=== PATIENT | male | born 1980 ===

== ENCOUNTER 2021-05-12 23:50 | Emergency (ER) | payer OTHER ==
--- NOTE | 2021-05-13 00:17 | EDM.PDOC ---
ED HPI GENERAL MEDICAL PROBLEM - General Chief Complaint: Upper Extremity Injury/Pain Stated Complaint: RIGHT PINKY INJURY Time Seen by Provider: 05/13/21 00:15 Source of Information: Reports: Patient. Denies: Old Records (No [facility] records available) History Limitations: Reports: No Limitations - History of Present Illness INITIAL COMMENTS - FREE TEXT/NARRATIVE: Patient was brought to the emergency room via transport vehicle from [facility] for evaluation of a Workmen's Compensation injury, which occurred at 6 AM on 05/12/2021. He had a minor crush injury between a press with Steri-Strips and 2 hole finger splint applied by the [facility] nurse at that time. Last ibuprofen dose of 400 mg at about 2 PM this afternoon with no other treatment to this point. He has not injured this finger in the past. The patient is right- handed. No recent history of abdominal pain, heartburn, nausea, diarrhea, melena, gross hematochezia, or any food intolerance, including fatty foods, etc.. The patient also denies any recent fever, cough, wheezing, dyspnea, etc.. He denies any fall, paresthesias, neurological deficits, or other complaints or injuries. Onset: Sudden Onset Date: 05/12/21 Onset Time: 06:00 Duration: Constant Location: Reports: Upper Extremity, Right. Denies: Head, Face, Neck, Chest, Abdomen, Back, Pelvis Quality: Reports: Same as Previous Episode, Throbbing Severity: Moderate Improves with: Reports: None Worsens with: Reports: None Context: Reports: Trauma (As above) Associated Symptoms: Denies: Confusion, Chest Pain, Cough, Diaphoresis, Fever/Chills, Headaches, Loss of Appetite, Malaise, Nausea/Vomiting, Shortness of Breath, Syncope, Weakness Treatments PLATE CLEANER: Reports: NSAIDS, Other (see below) (As above) Right Finger-Little Pain Score (Numeric/FACES): 7 - Related Data Allergies Allergy/AdvReac Type Severity Reaction Status Date / Time No Known Allergies Allergy Verified 05/12/21 23:54 Home Meds: Home Meds . [No Known Home Meds] 05/12/21 [History] Past Medical History - Past Health History Medical/Surgical History: Denies Medical/Surgical History Cardiovascular History: Denies: Hypertension Musculoskeletal History: Denies: Fracture Endocrine/Metabolic History: Reports: Obesity/BMI 30+ - Infectious Disease History Infectious Disease History: Denies: Novel Coronavirus (J&J immunization March 2021 by patient history) - Past Surgical History GI Surgical History: Reports: None. Denies: Appendectomy Male Surgical History: Reports: None. Denies: Circumcision Social & Family History - Tobacco Use Tobacco Use Status *Q: Never Tobacco User Second Hand Smoke Exposure: No - Caffeine Use Caffeine Use: Reports: None - Recreational Drug Use Recreational Drug Use: No - Living Situation & Occupation Occupation: Employed ([employer]) Review of Systems - Review of Systems Review Of Systems: Comprehensive ROS is negative, except as noted in HPI. ED EXAM, GENERAL - Physical Exam Exam: See Below Exam Limited By: No Limitations General Appearance: Alert, WD/WN, No Apparent Distress Head: Atraumatic, Normocephalic Neck: Normal Inspection, Supple, Non-Tender, Full Range of Motion. No: Lymphadenopathy (L), Lymphadenopathy (R), Thyromegaly Respiratory/Chest: No Respiratory Distress, Lungs Clear, Normal Breath Sounds, No Accessory Muscle Use, Chest Non-Tender. No: Pleural Rub, Retractions Cardiovascular: Normal Peripheral Pulses, Regular Rate, Rhythm, No Edema, No Gallop, No JVD, No Murmur, No Rub. No: Gallop/S3, Gallop/S4, Friction Rub Peripheral Pulses: 2+: Radial (L), Radial (R) GI/Abdominal: Normal Bowel Sounds, Soft, Non-Tender, No Organomegaly, No Distention, No Abnormal Bruit, No Mass, Pelvis Stable, Other (Obese). No: Guarding (Male) Exam: Deferred Rectal (Males) Exam: Deferred Back Exam: Normal Inspection, Full Range of Motion. No: CVA Tenderness (L), CVA Tenderness (R), Muscle Spasm Extremities: No Pedal Edema, Normal Capillary Refill, Limited Range of Motion (Right fifth finger secondary to an injury), Other (Moderate tenderness over laceration site with 1.5 cm superficial laceration over the radial surface of the middle phalanx of digit #5 of the right hand with no crepitation, deformity, nail involvement, etc.). No: Increased Warmth, Redness Neurological: Alert, Oriented, CN II-XII Intact, Normal Cognition, Normal Gait, Normal Reflexes, No Motor/Sensory Deficits Psychiatric: Normal Affect, Normal Mood Skin Exam: Normal Color, No Rash, Wound/Incision (As above). No: Diaphoretic, Ecchymosis, Lymphangitis Lymphatic: No Adenopathy ED TRAUMA EXTREMITY PROCEDURES - Splinting Right 5th Digit Pre-Procedure NV Status: Normal Post-Procedure NV Status: Normal Splint Material: Aluminum-Foam (3-hole padded aluminum) Splint Design: Extensor (Flexor), Other (Secured with 2 inch Howard wrap) Applied & Form Fitted By: Nurse Provider Post-Splint Application NV Check: NV Status Normal, Good Position Complications: No Course - Vital Signs Last Recorded V/S: Last Vital Signs Temp 36.2 C 05/12/21 23:56 Pulse 66 05/12/21 23:56 Resp 14 05/12/21 23:56 BP 137/81 05/12/21 23:56 Pulse Ox 100 05/12/21 23:56 Vital Signs - 24 hr 05/12/21 23:56 Temperature [ 36.2 C Temporal] Pulse, 66 Peripheral [ Left Pulse Oximetry] Respiratory 14 Rate Blood Pressure 137/81 [Left Upper Arm ] O2 Sat by Pulse 100 Oximetry - Orders/Labs/Meds Orders: Active Orders 24 hr Category Date Time Status Fingers Fifth Digit Rt F9 [CR] Stat Exams 05/13/21 00:18 Ordered Durable Medical Equipment for Discharge [DME for Oth 05/13/21 00:21 Ordered Discharge] [COMM] Routine Obtain Past Medical Record [OM.PC] Routine Oth 05/13/21 00:17 Active Labs: None Meds: Medications Discontinued Medications Generic Name Dose Route Start Last Admin Trade Name Kevin PRN Reason Stop Dose Admin Neomycin/Polymyxin/Bacitracin 1 each 05/13/21 00:30 Bacitracin/Neomycin/Polymyxin B Oint 0.9 Gm U/D Packet TOP 05/13/21 00:31 ONETIME ONE - Radiology Interpretation Free Text/Narrative:: X-rays of digit #5 of the right hand shows no evidence of fracture, dislocation, foreign body, etc. Departure - Departure Time of Disposition: 00:50 Disposition: Home, Self-Care 01 Condition: Good Clinical Impression: Laceration - Discharge Information *PRESCRIPTION DRUG MONITORING PROGRAM REVIEWED*: Not Applicable *COPY OF PRESCRIPTION DRUG MONITORING REPORT IN PATIENT JOHN: Not Applicable Instructions: Laceration Care, Adult, [id number] Forms: ED Department Discharge Additional Instructions: 1. Followup with your regular provider in 10-14 days as directed. Bring these discharge instructions with you to that visit. 2. Tylenol 650 mg by mouth every 4 hours and/or OTC ibuprofen 2-3 tabs by mouth every 6 hours with food as directed./needed. You may stagger these medications for 48-72 hours only, which essentially means that you are receiving a pain medication about every 2 hours. 3. Antibacterial soap wash/soak with subsequent antibacterial dressing such as Neosporin, etc. as directed 2 times per day until the wound or laceration site completely heals. Keep the area clean and dry with activity restrictions as discussed. Never use hydrogen peroxide for wound care. 4. You may use the finger splint as needed 5. Work excuse- See Form 6. Immediately after this visit verify that your cellular telephone's voicemail has been activated and is empty. Also verify that your home telephone's answering machine is operating properly and has space to receive messages. Note that it is sometimes necessary for us to be able to contact you at a later date to discuss your medical care. 7. Please remember that we are ALWAYS here for you and want to answer any questions you may have. Feel free to call the hospital any time and we call you back SKY. Sepsis Event Note (ED) - Evaluation Sepsis Screening Result: No Definite Risk - Focused Exam Vital Signs: Vital Signs Temp Pulse Resp BP Pulse Ox 05/12/21 23:56 36.2 C 66 14 137/81 100 - Problem List & Annotations (1) Laceration SNOMED Code(s): 198993356 Code(s): [id number] - Status: Acute Priority: High Onset Date: 05/12/21 Annotation/Comment:: Secondary to age of the injury laceration repair was not conducted. Previous Steri-Strips were removed by the nurse with laceration site cleansed, Neosporin dressing placed, and laceration site secured with 2 inch Howard wrap and a 3-hole finger splint. Finger splint may be used on an as-needed basis since no fracture is present. Emergency room nurse did confirm thru [facility] patient's last tetanus on 01/21/2019 with previous TDAP on 04/13/17. Wound care, activity restrictions, etc. were discussed. Workmen's Compensation and [employer] work excuse forms were completed. - Problem List Review Problem List Initiated/Reviewed/Updated: Yes - My Orders Last 24 Hours: My Active Orders 05/13/21 00:17 Obtain Past Medical Record [OM.PC] Routine 05/13/21 00:18 Fingers Fifth Digit Rt F9 [CR] Stat 05/13/21 00:21 Durable Medical Equipment for Discharge [DME for Discharge] [COMM] Routine - Assessment/Plan Last 24 Hours: My Active Orders 05/13/21 00:17 Obtain Past Medical Record [OM.PC] Routine 05/13/21 00:18 Fingers Fifth Digit Rt F9 [CR] Stat 05/13/21 00:21 Durable Medical Equipment for Discharge [DME for Discharge] [COMM] Routine Assessment:: As above Plan: As above. Extensive precautions were given to the patient, who is in agreement with the treatment plan. See Patient Instructions for further treatment and plan.
[2021-05-13] MEDS ORDERED: Bacitracin/Neomycin/Polymyxin B Oint 0.9 GM U/D Packet TOP ONE (00:30)
== END 2021-05-13 00:50 | disposition home or self-care (01) ==
LOC: LL.ED 23:50
DX: S61.216A Laceration without foreign body of right little finger without damage to nail, initial encounter (principal); I10 Essential (primary) hypertension; E66.9 Obesity, unspecified; Z68.30 Body mass index [BMI] 30.0-30.9, adult; W23.0XXA Caught, crushed, jammed, or pinched between moving objects, initial encounter
CPT/HCPCS: 73140-F9; 99283; 99283-25